=== PATIENT | female | born 1995 | race Hispanic/Latino ===

== ENCOUNTER 2020-09-12 16:46 | Emergency (ER) | payer OTHER ==
[2020-09-12 18:02] LABS: HIV (1/2) Antibody/Antigen Non-Reactive (NonReactive); HIV 1/2 INDEX 0.14 S/CO (<1.00); Hep C IgG Ab Non-Reactive (NonReactive); Hep C Index 0.22 S/CO (0-0.79)
[2020-09-12 19:12] LABS: HBSAB Concentration 7173.41 mIU/mL; Hep B Surf AB Reactive (NonReactive)
== END 2020-09-12 17:59 | disposition home or self-care (01) ==
LOC: ERS 16:46
DX: Z77.21 Contact with and (suspected) exposure to potentially hazardous body fluids (principal); G43.909 Migraine, unspecified, not intractable, without status migrainosus; Z79.899 Other long term (current) drug therapy
CPT/HCPCS: 36415; 86706; 86803; 87389; 99283